=== PATIENT | male | born 1990 | race Two or more races ===

== ENCOUNTER 2017-02-02 17:55 | Emergency (ER) | payer OTHER ==
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
[~2017-02-02 17:55] MED LIST: ADVAIR 2501 DISK W/D PO; ALBUTEROL17 G1 IH; CLARITIN10 MG PO; IBUPROFEN PO; KETOPROFEN PO; NASONEX17 GM; PHENERGAN PO; PREDNISONE10 MG/DOSE PO; ROBITUSSIN COU237 ML PO; ZITHROMAX1 G/PKT PO; ZYRTEC PO
[2017-02-02 18:14] LABS: BASOPHIL% 0.3 % (0-2.5); EOSINOPHIL% 0.6 % (0.0-7.0); HEMATOCRIT 43.9 % (38.0-50.0); HEMOGLOBIN 14.5 gm/dL (13.0-16.0); LYMPHOCYTE% 34.3 % (17.0-45.0); MEAN CELL VOLUME 88.3 FL (83-96); MEAN CORPUSCULAR HEMOGLOBIN 29.1 PG (28-34); MEAN PLATELET VOLUME 9.8 FL (6.5-11.5); MONOCYTE# 0.5 X10e3 (0-1.0); MONOCYTE% 7.8 % (3.0-12.0); NEUTROPHIL# 3.3 X10e3 (1.5-7.1); PLATELET COUNT 204 X10e3 (140-420); RED BLOOD COUNT 4.97 X10e (3.90-5.60); RED CELL DISTRIBUTION WIDTH 13.4 % (11.0-15.5); WHITE BLOOD COUNT 5.8 X10e3 (4.0-10.5)
[2017-02-02 18:18] LABS: DIFF IND NO
[2017-02-02 18:41] LABS: ALBUMIN SERUM 4.9 g/dL (3.5-5.0); ALKALINE PHOSPHATASE 67 U/L (32-92); ALT (SGPT) 28 U/L (10-40); AST (SGOT) 36 U/L (10-42); BILIRUBIN,TOTAL 0.8 mg/dL (0.2-2.0); BLOOD UREA NITROGEN 15 mg/dL (9-23); CALCIUM SERUM 9.9 mg/dL (8.4-10.2); CARBON DIOXIDE 29 mmol/L (22-31); CHLORIDE 101 mmol/L (100-111); GLOM FILT RATE Estimated ABOVE60 mL/min (>60); GLUCOSE FASTING 97 mg/dL (70-110); PROTEIN TOTAL SERUM 8.4 g/dL (6.0-8.3); SODIUM 138 mmol/L (135-145)
[2017-02-02 18:50] LABS: URINE SOURCE CLEAN CATCH
[2017-02-02 18:59] LABS: URINE APPEARANCE CLEAR; URINE BILIRUBIN NEG (NEG); URINE BLOOD NEG (NEG); URINE COLOR YELLOW; URINE GLUCOSE NEG (NEG); URINE KETONE 1+ (NEG); URINE LEUKOCYTE ESTERASE NEG (NEG); URINE NITRATE NEG (NEG); URINE PH 7.5 (5-8); URINE PROTEIN NEG (NEG); URINE SPECIFIC GRAVITY 1.032 (1.003-1.035)
[2017-02-02 19:06] LABS: CULTURE INDICATED? NO
== END 2017-02-02 20:02 | disposition home or self-care (01) ==
LOC: CFTX 17:55
PROVIDERS: Physician Assistant Medical
DX: S30.1XXA Contusion of abdominal wall, initial encounter (principal); S20.211A Contusion of right front wall of thorax, initial encounter; J45.909 Unspecified asthma, uncomplicated; V43.52XA Car driver injured in collision with other type car in traffic accident, initial encounter; Y92.410 Unspecified street and highway as the place of occurrence of the external cause
CPT/HCPCS: 36415; 71010; 71101; 74177; 80053; 81003; 85025; 96361; 96374; 96375; 99284; J2270; J2405; Q9967

== ENCOUNTER 2017-05-28 17:41 | Emergency (ER) | payer OTHER ==
--- NOTE | ~2017-05-28 | CT71 ---
[facility] A Service [facility] RADIOLOGY TEXT RESULTS PATIENT: MARQUES SCHWARTZ LOCATION: [facility] : 90 UNIT #: [id number] AGE: [address]: Natanael Duvall MD SEX: M ORDER DR: [id number] [facility] [address] [place], [place] [address] [id number] E MR#: [id number] Acc #: [id number] NAME: MARQUES SCHWARTZ. : 1990 SEX: M STUDY DATE/TIME: 05/28/2017 20:50 UNIT: [facility] ROOM: STUDY DESCRIPTION: CT Head Wo Contrast Attending Physician: Natanael Duvall M.D. Ordering Physician: Natanael Duvall M.D. Primary Care Physician: Primary Care Physician No MEDICAL IMAGING REPORT This report is preliminary unless electronic signature is present EXAM Head CT without HISTORY Syncope while walking to the store. Acute presentation. Head pain today, right-sided. No history of cancer. COMMENT Routine noncontrast head CT is reviewed. The previous is from [address] exam was performed with one or more of the following radiation dose reduction techniques: automatic exposure control, adjustment of mA and/or kV according to patient size, and iterative reconstruction. There is no displaced calvarial fracture. The visualized mastoid air cells are clear. The visualized paranasal sinuses show mild ethmoid mucosal thickening but no air-fluid level. There is no evidence for acute intracranial hemorrhage or extraaxial fluid collection. The ventricles are normal in size and configuration. The adams-white junction is well maintained. The basilar cisterns are patent. There is no intracranial mass effect. No acute cortical infarct is suspected. IMPRESSION Negative noncontrast head CT. No acute intracranial injury. Dictated by... Bia Jessica M.D. [facility] A Service [facility] RADIOLOGY TEXT RESULTS PATIENT: MARQUES SCHWARTZ LOCATION: [facility] : 90 UNIT #: [id number] AGE: [address]: Natanael Duvall MD SEX: M ORDER DR: THIS IS AN ELECTRONICALLY VERIFIED REPORT Bia Jessica M.D. at 05/29/2017 10:38 AM NEIDA/mabel TD: 05/29/2017 03:32 JOB #: [id number] MEDICAL IMAGING REPORT Page 1 of 1 COPY
--- NOTE | ~2017-05-28 | EKG ---
PATIENT: MARQUES SCHWARTZ UNIT #: [id number] Ventricular Rate: 61 BPM Atrial Rate: 61 BPM P-R Interval: 180 ms QRS Duration: 96 ms Q-T Interval: 394 ms QTC Calculation(Bezet): 396 ms P [place]: 49 degrees Calculated R [place]: 63 degrees Calculated T [place]: 50 degrees Diagnosis Line: Normal sinus rhythm Diagnosis Line: Normal ECG Diagnosis Line: No previous ECGs available Diagnosis Line: Confirmed by HADLEY VILLAGOMEZ MD ([id number]) on Diagnosis Line: 05/29/2017 9:04:57 AM INTERPRETING MD: HERNANDO BLOOD
[2017-05-28 20:40] LABS: BASOPHIL% 0.5 % (0-2.5); EOSINOPHIL% 0.7 % (0.0-7.0); HEMATOCRIT 42.4 % (38.0-50.0); HEMOGLOBIN 13.9 gm/dL (13.0-16.0); LYMPHOCYTE% 32.7 % (17.0-45.0); MEAN CORPUSCULAR HGB CONC 32.9 g/dL (30-36); MEAN PLATELET VOLUME 9.1 FL (6.5-11.5); MONOCYTE# 0.5 X10e3 (0-1.0); MONOCYTE% 7.9 % (3.0-12.0); NEUTROPHIL# 3.6 X10e3 (1.5-7.1); NEUTROPHIL% 58.2 % (40-75); PLATELET COUNT 173 X10e3 (140-420); RED BLOOD COUNT 4.81 X10e (3.90-5.60); WHITE BLOOD COUNT 6.2 X10e3 (4.0-10.5)
[2017-05-28 20:41] LABS: DIFF IND NO
[2017-05-28 21:07] LABS: BUN/CREATININE RATIO 16.66; CALCIUM SERUM 9.4 mg/dL (8.4-10.2); CREATININE SERUM 0.9 mg/dL (0.6-1.4); GLOM FILT RATE Estimated 116.6 mL/min (>60)
== END 2017-05-28 23:00 | disposition home or self-care (01) ==
LOC: CED 17:41
PROVIDERS: Emergency Medicine
DX: R55 Syncope and collapse (principal); S09.90XA Unspecified injury of head, initial encounter; J45.909 Unspecified asthma, uncomplicated; F17.200 Nicotine dependence, unspecified, uncomplicated; X58.XXXA Exposure to other specified factors, initial encounter
CPT/HCPCS: 70450; 80048; 85025; 93005; 96360; 99285